=== PATIENT | male | born 1990 | race Caucasian/White ===

== ENCOUNTER 2017-05-21 17:15 | Emergency (ER) | payer BC ==
[~2017-05-21] VITALS: Ht 177.8 cm; Wt 104.3 kg
[~2017-05-21 17:15] MED LIST: AUGMENTIN 875-1 EACH PO; NORCO 5-325 TA1 EACH PO; OSELB75 PO; TOBREX5 ML OPHTHALMIC; TUSSIONEX PENN473 ML PO
[2017-05-21 18:38] VITALS: BP 128/75
== END 2017-05-21 18:39 | disposition home or self-care (01) ==
LOC: ER 17:15
DX: S61.212A Laceration without foreign body of right middle finger without damage to nail, initial encounter (principal); F10.99 Alcohol use, unspecified with unspecified alcohol-induced disorder; W26.0XXA Contact with knife, initial encounter; Y93.89 Activity, other specified; Y92.89 Other specified places as the place of occurrence of the external cause; Y99.8 Other external cause status

== ENCOUNTER 2017-12-18 03:15 | Emergency (ER) | payer BC ==
[~2017-12-18] VITALS: Ht 177.8 cm; Wt 106.6 kg
--- NOTE | ~2017-12-18 | EKG ---
[address] [address] ELECTROCARDIOGRAM REPORT Name: GARTH SENIOR Room #: [facility]ITALUri[facility] [id number] Admission: 12/18/17 Attend Phys: Discharge: 12/18/17 Date of : [birth year] Report #: [id number] THIS REPORT FOR: //name// [facility] ED Test Date: 2017-12-18 Test Time: 03:45:29 Pat Name: GARTH ERENDIRAWESTOSHIA Department: Room: Gender: M Medical Collections Representative: RAFI SERRA : 1990 Requested By: Darius Cohen Order Number: [id number] MD: Carlos Carson Measurements Intervals [place] Rate: 61 P: -10 PA: 129 QRS: 22 QRSD: 105 T: 23 QT: 408 QTc: 411 Interpretive Statements Sinus rhythm No previous ECG available for comparison Electronically Signed On 12-18-2017 8:00:28 CDT by Carlos Carson [email or web address] <ELECTRONICALLY SIGNED> By: Carlos Carson MD 12/18/17 0800 [id number] MD ALEX [place]
[2017-12-18 04:13] LABS: ABSOLUTE NEUTROPHILS 6.6 thou/uL (1.4-8.2); BASOPHILS 0.6 % (0.0-2.0); EOSINOPHILS 2.1 % (0.0-3.0); HEMATOCRIT 45.4 % (42.0-52.0); HEMOGLOBIN 15.6 gm/dL (14.0-18.0); LYMPHOCYTES 36.5 % (24.0-44.0); MCH 30.6 pg (26.0-34.0); MCHC 34.4 g/dL (28.0-37.0); MCV 88.9 fL (80.0-100.0); MONOCYTES 5.2 % (1.0-8.0); PLATELET COUNT 234 thou/uL (150-400); POLYS 55.6 % (36.0-66.0); RDW 12.9 % (10.5-14.5); WBC 11.8 thou/uL (4.0-11.0)
[2017-12-18 04:21] LABS: ANION GAP 9 mmol/L (7-16); BUN 16 mg/dL (7-18); CALCIUM 9.3 mg/dL (8.5-10.1); CHLORIDE 101 mmol/L (98-107); CO2 27 mmol/L (21-32); GLUCOSE 92 mg/dL (74-106); POTASSIUM 3.7 mmol/L (3.5-5.1); SODIUM 137 mmol/L (136-145)
[2017-12-18 04:21] LABS: URINE BILIRUBIN NEGATIVE (Negative); URINE BLOOD NEGATIVE (Negative); URINE CLARITY CLEAR; URINE COLOR YELLOW; URINE GLUCOSE-RANDOM* NEGATIVE (Negative); URINE KETONES NEGATIVE (Negative); URINE LEUKOCYTES-REFLEX NEGATIVE (Negative); URINE NITRITE-REFLEX NEGATIVE (Negative); URINE PROTEIN (DIPSTICK) NEGATIVE (Negative); URINE SPECIFIC GRAVITY >= 1.030 (1.005-1.035); URINE UROBILINOGEN 0.2 E.U./dl (0.2-1.0)
[2017-12-18 04:29] LABS: ALBUMIN 4.2 g/dL (3.4-5.0); LIPASE 164 U/L (73-393); SGOT 24 U/L (15-37); SGPT 50 U/L (30-65); TOTAL BILIRUBIN 0.5 mg/dL (<0.1-1.0); TOTAL PROTEIN 7.6 g/dL (6.4-8.2); TROPONIN-I < 0.04 ng/mL (<0.06)
[2017-12-18] MEDS ORDERED: PEPCID20 MG PO (05:10)
[2017-12-18 05:17] VITALS: BP 115/76
== END 2017-12-18 05:18 | disposition home or self-care (01) ==
LOC: ER 03:15
PROVIDERS: Emergency Medicine
DX: K21.9 Gastro-esophageal reflux disease without esophagitis (principal); K59.00 Constipation, unspecified

== ENCOUNTER → 2018-07-19 | Emergency (ER) | payer BC ==
[~2018-07-19] VITALS: Ht 177.8 cm; Wt 104.3 kg
[~2018-07-19] MED LIST changes: +CEPACOL SORE T1 EAC8 PO; +PEPCID20 MG PO; +PREDNISONE 20 M20 MG PO
[2018-07-19 12:00] VITALS: BP 131/77
== END ==
LOC: ER 10:28
DX: J02.0 Streptococcal pharyngitis (principal)